=== PATIENT | male | born 1975 | race Caucasian/White ===

== ENCOUNTER 2023-07-19 08:25 | Outpatient (AMB) | payer BC, SELFPAY ==
--- NOTE | 2023-07-19 09:12 | MHC.OFFWIV ---
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 fevers, chills, minor sharp pains under eyes, headaches. denies any sore throat. 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 Reporting symptoms of sinus congestion, sore throat and difficulty swallowing. Low-grade fever. No family member is sick. No recent travel. Patient reports symptoms of malaise and fatigue. PFSH Social History Patient Tobacco Use Status: Never used Tobacco Physical Exam Vital Signs: Last Vital Signs Temp 99.2 F 07/19/23 09:18 Pulse 128 H 07/19/23 09:18 BP 138/90 H 07/19/23 09:18 Pulse Ox 98 07/19/23 09:18 Oxygen Delivery Method Room Air 07/19/23 09:18 Const General: cooperative and healthy appearing Nutritional Appearance: well nourished Orientation/consciousness: patient oriented x3 Limitations: no limitations HEENT Head: Yes normal to inspection Eyes General: appearance normal, both eyes and all related structures Neck Neck: Yes normal visual inspection Chest Chest palpation & inspection: normal palpation of entire chest wall Resp Effort & Inspection: normal respiratory effort Neuro General: patient oriented x3 Assessment & Plan Assessment & Plan (1) Upper respiratory tract infection: Code(s): J06.9 - Acute upper respiratory infection, unspecified Plan: Antibiotics ordered. Increase fluid intake. Tylenol for aches and pains. If symptoms worsen, follow-up here for a recheck. Coding Level of Care Code Est Pt Level 3 (53918) Diagnoses Upper respiratory tract infection J06.9
[2023-07-19 09:18] VITALS: BP 138/90; PULSE 128; TEMP 37.3; O2SAT 98
== END 2023-07-19 09:29 | disposition home or self-care (01) ==
PROVIDERS: Visit Provider Internal Medicine
DX: J06.9 Acute upper respiratory infection, unspecified (principal)
CPT/HCPCS: 99213

== ENCOUNTER 2024-01-17 07:00 | Outpatient (RCR) | payer BC, SELFPAY | END 2024-02-17 08:42 | disposition home or self-care (01) | LOC: HO.PTCHIC 07:00 | PROVIDERS: PCP Physician Assistant; Visit Provider Surgery Vascular Surgery | DX: Z89.512 Acquired absence of left leg below knee (principal) | CPT/HCPCS: 97110; 97112; 97116; 97162; 97530 ==